=== PATIENT | female | born 1975 | race Caucasian/White ===

== ENCOUNTER → 2018-01-09 | Outpatient (CLI) | payer OTHER ==
[~2018-01-09] MED LIST: Amoxicillin500 MG PO; RXTRAM50 PO; TRAM50 PO
[2018-01-09 12:27] LABS: BASOPHILS ABSOLUTE AUTO 0.04 K/mm3 (0.00-0.23); BASOPHILS PERCENT AUTO 1 % (0-2); EOSINOPHILS ABSOLUTE AUTO 0.15 K/mm3 (0.00-0.68); EOSINOPHILS PERCENT AUTO 3 % (0-6); Hematocrit 39.3 % (33.0-51.0); Hemoglobin 13.2 g/dL (11.5-16.0); IMMATURE GRAN ABSOLUTE AUTO 0.01 K/mm3 (0.00-0.10); IMMATURE GRAN PERCENT AUTO 0 % (0-1); LYMPHOCYTES PERCENT AUTO 31 % (21-46); MONOCYTES ABSOLUTE AUTO 0.47 K/mm3 (0.16-1.47); MONOCYTES PERCENT AUTO 8 % (4-13); Mean Corpuscular HGB 29.7 pg (26.0-34.0); Mean Corpuscular HGB Conc 33.6 g/dL (31.5-36.5); Mean Corpuscular Volume 89 fL (80-100); Mean Platelet Volume 8.8 fL (9.1-12.4); NEUTROPHILS ABSOLUTE AUTO 3.52 K/mm3 (1.96-9.15); NEUTROPHILS PERCENT AUTO 58 % (41-73); Platelet Count 316 K/mm3 (150-400); RDW Coefficient Variation 13.2 % (11.7-14.2); RDW Standard Deviation 43.1 fL (35.1-46.3); Red Blood Cell Count 4.44 M/mm3 (3.80-5.20); White Blood Cell Count 6.09 K/mm3 (4.00-11.30)
[2018-01-09 12:36] LABS: Alanine Aminotransfer (ALT/SGP 24 U/L (12-78); Albumin, Blood 3.8 g/dL (3.4-5.0); Alk Phos 68 U/L (40-126); Anion Gap 8 mmol/L (6-16); Aspartate Aminotrans (AST/SGOT 18 U/L (12-37); Bilirubin, Total 0.3 mg/dL (0.1-1.0); Blood Urea Nitrogen 20 mg/dL (8-24); Bun/Creatinine Ratio 22.7 (12.0-20.0); CO2, Blood 29 mmol/L (21-32); Calcium, Blood 8.6 mg/dL (8.5-10.1); Chloride, Blood 103 mmol/L (98-108); Creatinine, Blood 0.88 mg/dL (0.40-1.00); Globulin, Blood 3.7 g/dL (2.2-4.0); Glomerular Filtration Rate >60 (60-); Glucose, Blood 109 mg/dL (70-99); Potassium, Blood 3.8 mmol/L (3.5-5.5); Sodium, Blood 140 mmol/L (136-145); Total Protein, Blood 7.5 g/dL (6.4-8.2)
== END ==
LOC: LAB EV 12:21 → LAB SHORT 12:21
PROVIDERS: General Practice
DX: S60.211A Contusion of right wrist, initial encounter (principal)
CPT/HCPCS: 80053; 85025

== ENCOUNTER 2022-03-01 19:26 | Emergency (ER) | payer OTHER ==
[~2022-03-01] VITALS: Ht 170.2 cm; Wt 83.9 kg
[2022-03-01] MEDS ORDERED: IBUP400 PO (22:14)
== END 2022-03-01 22:18 | disposition home or self-care (01) ==
LOC: ER 19:26
DX: S05.91XA Unspecified injury of right eye and orbit, initial encounter (principal); S01.111A Laceration without foreign body of right eyelid and periocular area, initial encounter; F17.200 Nicotine dependence, unspecified, uncomplicated; Y04.2XXA Assault by strike against or bumped into by another person, initial encounter
CPT/HCPCS: 70480; 90714; J1885

== ENCOUNTER 2022-10-14 20:06 | Emergency (ER) | payer OTHER ==
[~2022-10-14] VITALS: Ht 170.2 cm; Wt 90.7 kg
[~2022-10-14 20:06] MED LIST changes: +IBUP400 PO
== END 2022-10-14 21:07 | disposition home or self-care (01) ==
LOC: ER 20:06
DX: K59.00 Constipation, unspecified (principal); F17.200 Nicotine dependence, unspecified, uncomplicated
CPT/HCPCS: 99282; A9270

== ENCOUNTER → 2022-10-23 | Outpatient (CLI) | payer OTHER ==
[2022-10-29 17:10] LABS: HPV 16 Positive (Negative); HPV 18 Negative (Negative); HPV OTHER HR TYPES Negative (Negative)
== END | disposition home or self-care (01) ==
LOC: LAB SHORT 18:38 → LAB 18:38
PROVIDERS: Obstetrics & Gynecology
DX: Z01.419 Encounter for gynecological examination (general) (routine) without abnormal findings (principal)
CPT/HCPCS: 87624; G0145

== ENCOUNTER → 2022-10-23 | Outpatient (CLI) | payer OTHER | END | disposition home or self-care (01) | LOC: LAB 07:45 → LAB SHORT 07:45 | DX: N72 Inflammatory disease of cervix uteri (principal) | CPT/HCPCS: 88305; 88312 ==

== ENCOUNTER → 2022-10-28 | Outpatient (CLI) | payer OTHER | END | disposition home or self-care (01) | LOC: LAB SHORT 07:26 → PLD 07:26 | DX: C53.0 Malignant neoplasm of endocervix (principal); C53.1 Malignant neoplasm of exocervix | CPT/HCPCS: 88305; 88342 ==

== ENCOUNTER 2022-11-09 21:00 | Emergency (ER) | payer OTHER ==
[~2022-11-09] VITALS: Ht 170.2 cm; Wt 81.7 kg
== END 2022-11-09 21:59 | disposition home or self-care (01) ==
LOC: ER 21:00
DX: R04.0 Epistaxis (principal); F17.200 Nicotine dependence, unspecified, uncomplicated
CPT/HCPCS: 99282

== ENCOUNTER → 2022-12-29 | Outpatient (CLI) | payer OTHER ==
[2022-12-29 13:22] LABS: Bun/Creatinine Ratio 26.5 (12.0-20.0); Calcium, Blood 8.9 mg/dL (8.5-10.1); Creatinine, Blood 0.64 mg/dL (0.40-1.00); Magnesium, Blood 1.7 mg/dL (1.6-2.4)
== END | disposition home or self-care (01) ==
LOC: LAB SHORT 12:34
PROVIDERS: Internal Medicine Hematology & Oncology
DX: C53.9 Malignant neoplasm of cervix uteri, unspecified (principal)
CPT/HCPCS: 80048; 83735

== ENCOUNTER 2023-08-02 23:19 | Emergency (ER) | payer OTHER ==
[~2023-08-02] VITALS: Ht 170.2 cm; Wt 90.7 kg
[2023-08-03 00:16] LABS: Source, Urine Clean Catch
[2023-08-03 00:21] LABS: Bilirubin, Urine Neg (Neg); Blood, Urine 5+ (Neg); Glucose Qualitative, Urine Neg (Neg); Ketones, Urine Neg (Neg); Leukocyte Esterase, Urine 1+ (Neg); Nitrite, Urine Neg (Neg); Protein, Urine 3+ (Neg); Specific Gravity, Urine 1.015 (1.003-1.022); Urobilinogen, Urine NORM (Normal)
[2023-08-03 01:42] LABS: Appearance, Urine Hazy (Clear); Color, Urine Brown (P-Yellow)
[2023-08-03 01:43] LABS: Bacteria Few /hpf; Red Blood Cells, Urine TNTC /hpf (0-2); Squamous Epithelial Cells Few /hpf (Few); White Blood Cells, Urine 0-2 /hpf (0-5)
[2023-08-03 02:40] VITALS: BP 165/93
[2023-08-03 02:56] LABS: BASOPHILS ABSOLUTE AUTO 0.04 K/mm3 (0.00-0.23); BASOPHILS PERCENT AUTO 1 % (0-2); EOSINOPHILS ABSOLUTE AUTO 0.09 K/mm3 (0.00-0.68); EOSINOPHILS PERCENT AUTO 1 % (0-6); Hematocrit 39.6 % (33.0-51.0); Hemoglobin 13.2 g/dL (11.5-16.0); IMMATURE GRAN ABSOLUTE AUTO 0.01 K/mm3 (0.00-0.10); IMMATURE GRAN PERCENT AUTO 0 % (0-1); LYMPHOCYTES ABSOLUTE AUTO 0.85 K/mm3 (0.84-5.20); LYMPHOCYTES PERCENT AUTO 10 % (21-46); MONOCYTES ABSOLUTE AUTO 0.68 K/mm3 (0.16-1.47); MONOCYTES PERCENT AUTO 8 % (4-13); Mean Corpuscular HGB 29.1 pg (26.0-34.0); Mean Corpuscular HGB Conc 33.3 g/dL (31.5-36.5); Mean Corpuscular Volume 87 fL (80-100); Mean Platelet Volume 8.4 fL (9.1-12.4); NEUTROPHILS PERCENT AUTO 81 % (41-73); Platelet Count 307 K/mm3 (150-400); RDW Coefficient Variation 13.6 % (11.7-14.2); RDW Standard Deviation 43.7 fL (35.1-46.3); Red Blood Cell Count 4.53 M/mm3 (3.80-5.20); White Blood Cell Count 8.87 K/mm3 (4.00-11.30)
[2023-08-03 03:14] LABS: Albumin, Blood 3.8 g/dL (3.4-5.0); Bilirubin, Total 0.3 mg/dL (0.1-1.0); Bun/Creatinine Ratio 18.3 (12.0-20.0); Calcium, Blood 9.9 mg/dL (8.5-10.1); Creatinine, Blood 1.09 mg/dL (0.40-1.00); Total Protein, Blood 7.8 g/dL (6.4-8.2)
[2023-08-03] MEDS ORDERED: CEPH500 PO (04:19)
== END 2023-08-03 04:37 | disposition home or self-care (01) ==
LOC: ER 23:19
PROVIDERS: Emergency Medicine; Physician Assistant
DX: T83.113A Breakdown (mechanical) of other urinary stents, initial encounter (principal); N39.0 Urinary tract infection, site not specified; E86.0 Dehydration; N13.30 Unspecified hydronephrosis; C53.9 Malignant neoplasm of cervix uteri, unspecified; F17.200 Nicotine dependence, unspecified, uncomplicated
CPT/HCPCS: 74176; 76770; 80053; 81001; 85025; 87086; 96365; 99284-25; A9270; J0696

== ENCOUNTER 2024-08-21 10:39 | Day surgery (SDC) | payer OTHER ==
[~2024-08-21] VITALS: Ht 172.7 cm; Wt 102.0 kg
[2024-08-21] VITALS (8 sets, daily range): BP systolic 113–150; BP diastolic 80–100
[~2024-08-21 10:39] MED LIST changes: +CEPH500 PO
[2024-08-21 11:27] LABS: BASOPHILS ABSOLUTE AUTO 0.04 K/mm3 (0.00-0.23); BASOPHILS PERCENT AUTO 1 % (0-2); EOSINOPHILS ABSOLUTE AUTO 0.23 K/mm3 (0.00-0.68); EOSINOPHILS PERCENT AUTO 4 % (0-6); Hematocrit 32.1 % (33.0-51.0); Hemoglobin 10.1 g/dL (11.5-16.0); IMMATURE GRAN ABSOLUTE AUTO 0.02 K/mm3 (0.00-0.10); IMMATURE GRAN PERCENT AUTO 0 % (0-1); LYMPHOCYTES ABSOLUTE AUTO 1.11 K/mm3 (0.84-5.20); LYMPHOCYTES PERCENT AUTO 18 % (21-46); MONOCYTES ABSOLUTE AUTO 0.44 K/mm3 (0.16-1.47); MONOCYTES PERCENT AUTO 7 % (4-13); Mean Corpuscular HGB 25.5 pg (26.0-34.0); Mean Corpuscular HGB Conc 31.5 g/dL (31.5-36.5); Mean Corpuscular Volume 81 fL (80-100); Mean Platelet Volume 8.1 fL (9.1-12.4); NEUTROPHILS ABSOLUTE AUTO 4.46 K/mm3 (1.96-9.15); NEUTROPHILS PERCENT AUTO 71 % (41-73); Platelet Count 391 K/mm3 (150-400); RDW Coefficient Variation 15.8 % (11.7-14.2); RDW Standard Deviation 46.3 fL (35.1-46.3); Red Blood Cell Count 3.96 M/mm3 (3.80-5.20)
[2024-08-21 11:41] LABS: International Normalized Ratio 0.94; Prothrombin Time Results 10.1 Sec (9.7-11.5)
[2024-08-21 12:01] LABS: Bun/Creatinine Ratio 14.2 (12.0-20.0); Calcium, Blood 9.9 mg/dL (8.5-10.1); Creatinine, Blood 1.27 mg/dL (0.40-1.00)
[2024-08-21] MEDS ORDERED: NS 500 ML IV ONE ×2 (12:06→12:10)
[2024-08-21] MEDS ORDERED: FentaNYL Citrate 50 MCG/ML 2 ML Injection ONE (12:10)
[2024-08-21] MEDS ORDERED: Midazolam HCl 1MG / ML 2ML Vial ONE (12:31)
--- NOTE | 2024-08-21 13:38 | NUR ---
NEPH TUBE SITE SOFT NON-TENDER WITH NO HEMATOMA, NO BLEEDING. DRESSING REMOVED AND 4X4 GAUZE AND TEGADERM PLACED OVER SITE PER PT REQUEST. PT EATING FOOD. CALL LIGHT IN REACH.
--- NOTE | 2024-08-21 14:02 | NUR ---
DR SKELTON IN ROOM TO SEE PT. DISCHARGE INSTRUCTIONS REVIEWED ALL QUESTIONS ANSWERED. 20 G IV DISCONTINUED FROM RIGHT AC WITH INTACT CANNULA. PT ESCORTED OUT VIA WHEELCHAIR ESCORT.
== END 2024-08-21 14:05 | disposition home or self-care (01) ==
LOC: MHTC 10:39
PROVIDERS: Student in an Organized Health Care Education/Training Program
DX: Z43.6 Encounter for attention to other artificial openings of urinary tract (principal); N13.1 Hydronephrosis with ureteral stricture, not elsewhere classified; N13.30 Unspecified hydronephrosis; C53.0 Malignant neoplasm of endocervix; Z87.891 Personal history of nicotine dependence
CPT/HCPCS: 36415; 50435; 80048; 85007; 85025; 85027; 85610; 99152; C1729; C1769; J2250; J3010; J7040; Q9967